=== PATIENT | female | born 1930 | race African-American/Black ===

== ENCOUNTER 2018-04-18 15:02 | Inpatient (IN) ==
[2018-04-18] MEDS ORDERED: SODIUM CHLORIDE 0.9% 500 ML IV STA (15:38)
[2018-04-18 16:32] LABS: Basophils % 0.4 % (0.0-0.8); Eosinophils # 0.3 10*3/uL (0.0-0.87); Eosinophils % 2.5 % (0.00-10.9); Hematocrit 35.7 VOL% (35.7-47.0); Hemoglobin 11.3 GM/DL (12.0-16.0); Immature Granulocytes % 0.5 %; Immature Granulocytes Absolute 0.05 #; Lymphocytes # 2.3 10*3/uL (1.4-4.0); Lymphocytes % 22.7 % (21.3-54.2); Mean Corpuscular HGB Conc 31.7 GM/DL (32-36); Mean Corpuscular Hemoglobin 25 PG (27-34); Mean Platelet Volume 11.5 FL (9.6-12.0); Monocytes # 1.7 10*3/uL (0.11-0.8); Monocytes % 16.4 % (1.7-12.7); Neutrophils # 5.9 10*3/uL (1.4-7.4); Neutrophils % 57.5 % (38.7-73.9); Platelet Count 204 T/CUMM (130-400); Red Blood Count 4.46 MC/CUMM (3.8-5.5); White Blood Count 10.3 T/CUMM (4-12)
[2018-04-18 16:39] LABS: INR 1.1; PT Patient Result 11.2 SECS
[2018-04-18 16:44] LABS: Ammonia 27 UMOL/L (11-32)
[2018-04-18 16:49] LABS: Lactic Acid 1.3 MMOL/L (0.4-2.0)
[2018-04-18 16:55] LABS: Eosinophils 4 % (0-10); Lymphocytes 22 % (20-55); Platelet Estimate Normal; Segmented Neutrophils 59 % (50-85); Total Cells Counted 100
[2018-04-18 17:00] LABS: Alanine Aminotransferase 24 U/L (13-56); Albumin 2.7 G/DL (3.4-5.0); Alkaline Phosphatase 66 U/L (45-117); Aspartate Amino Transferase 35 U/L (0-37); Blood Urea Nitrogen 23 MG/DL (7-18); Glucose 110 MG/DL (74-106); Osmolality,Calculated 281.5 MOS/KG (273-304); Potassium 3.5 MMOL/L (3.5-5.1); Sodium 139 MMOL/L (136-145); Total Protein 8.3 G/DL (6.4-8.3)
[2018-04-18 17:09] LABS: Apearance,Urine CLOUDY (Clear); Bacteria,Urine Few /HPF (Few); Bilirubin,Urine Negative (Negative); Blood, Urine Small mg/dL (Negative); Glucose,Urine (UA) Negative (Negative); Ketones,Urine Negative (Negative); Mucus,Urine Occasional /LPF (Occasional); Nitrite,Urine Negative (Negative); Protein,Urine 100 MG/DL; RBC,Urine 16 /HPF (0-4); Urine Color Yellow (Yellow); Urine Specific Gravity 1.016 (1.001-1.035); Urine Urobilinogen < 2.0 EU/DL (0.2-1.0); WBC,Urine 282 /HPF (0-6)
[2018-04-18] MEDS ORDERED: cefTRIAXone 1,000 MG in SODIUM CHLORIDE 0.9% 100 ML IV STA (17:18)
[2018-04-18 17:43] LABS: Barbiturates Screen,Urine Negative (Negative); Benzodiazepines Screen,Urine Negative (Negative); Cannabinoid Screen,Urine Negative (Negative); Opiate Screen,Urine Negative (Negative); Phencyclidine Screen,Urine Negative (Negative)
[2018-04-18] MEDS ORDERED: MAGNESIUM HYDROXIDE SUSP 30 ML UDCUP PO STA (18:26)
[2018-04-18] MEDS ORDERED: BISACODYL 5 MG TABLET PO ONE (18:26)
[2018-04-18] MEDS ORDERED: SODIUM CHLORIDE 0.9% 1,000 ML IV SCH (18:30)
[2018-04-18] MEDS: traMADol 50 MG TABLET PO SCH ×2 (21:12→23:42)
[2018-04-18] MEDS: DOCUSATE SODIUM 100 MG CAPSULE PO SCH (21:23)
[2018-04-18] MEDS: CARVEDILOL 3.125 MG TABLET PO SCH (21:23)
[2018-04-18] MEDS: SERTRALINE 25 MG TABLET PO SCH (21:23)
[2018-04-19] MEDS ORDERED: amLODIPine 5 MG TABLET PO ONE (02:30)
[2018-04-19] MEDS: traMADol 50 MG TABLET PO SCH ×3 (05:23→18:38)
[2018-04-19 05:51] LABS: Basophils % 0.4 % (0.0-0.8); Eosinophils # 0.1 10*3/uL (0.0-0.87); Eosinophils % 0.9 % (0.00-10.9); Hematocrit 35.5 VOL% (35.7-47.0); Hemoglobin 11.2 GM/DL (12.0-16.0); Immature Granulocytes % 0.4 %; Immature Granulocytes Absolute 0.04 #; Lymphocytes # 1.1 10*3/uL (1.4-4.0); Lymphocytes % 10.1 % (21.3-54.2); Mean Corpuscular HGB Conc 31.5 GM/DL (32-36); Mean Corpuscular Hemoglobin 25 PG (27-34); Mean Corpuscular Volume 79.4 FL (87-102); Mean Platelet Volume 11.7 FL (9.6-12.0); Monocytes # 1.3 10*3/uL (0.11-0.8); Monocytes % 11.7 % (1.7-12.7); Neutrophils # 8.4 10*3/uL (1.4-7.4); Neutrophils % 76.5 % (38.7-73.9); Platelet Count 203 T/CUMM (130-400); Red Blood Count 4.47 MC/CUMM (3.8-5.5); Red Cell Distribution Width 14.8 % (9.3-17.3)
[2018-04-19 06:22] LABS: Albumin 2.5 G/DL (3.4-5.0); Bilirubin,Total 1.6 MG/DL (0.2-1.0); Calcium 8.7 MG/DL (8.5-10.1); Osmolality,Calculated 278.5 MOS/KG (273-304); Potassium 2.9 MMOL/L (3.5-5.1); Risk Ratio 2.52; VLDL CHOLESTEROL 15.2 MG/DL
[2018-04-19] MEDS ORDERED: POTASSIUM CHLORIDE 20 MEQ TABLET PO PRN (07:21)
[2018-04-19] MEDS ORDERED: amLODIPine 5 MG TABLET PO SCH (09:00)
[2018-04-19] MEDS: CARVEDILOL 3.125 MG TABLET PO SCH ×2 (09:18→16:15)
[2018-04-19] MEDS: DOCUSATE SODIUM 100 MG CAPSULE PO SCH ×2 (09:19→20:57)
[2018-04-19] MEDS: ISOSORBIDE MONONITRATE 30 MG TABLET PO SCH (09:23)
[2018-04-19] MEDS: ASPIRIN EC 81 MG TABLET PO SCH (09:23)
[2018-04-19] MEDS: PANTOPRAZOLE 40 MG TABLET PO SCH (09:25)
[2018-04-19] MEDS: ROSUVASTATIN 10 MG TABLET PO SCH (09:25)
[2018-04-19] MEDS: FLUTICASONE 50 MCG NASAL SPRAY 16 GM BOTTLE BOTH NARES SCH (09:26)
[2018-04-19] MEDS: POTASSIUM CHLORIDE RIDER 10 MEQ in PREMIX 1 EACH IV PRN ×5 (09:30→13:35)
[2018-04-19] MEDS: cefTRIAXone 1,000 MG in SYRINGE 1 EACH IV SCH (16:15)
[2018-04-19] MEDS: SERTRALINE 25 MG TABLET PO SCH (20:57)
[2018-04-20] MEDS: traMADol 50 MG TABLET PO SCH ×4 (02:33→17:35)
[2018-04-20 05:47] LABS: Basophils % 0.3 % (0.0-0.8); Eosinophils # 0.3 10*3/uL (0.0-0.87); Eosinophils % 3.2 % (0.00-10.9); Hematocrit 32.3 VOL% (35.7-47.0); Hemoglobin 10.2 GM/DL (12.0-16.0); Immature Granulocytes % 0.6 %; Immature Granulocytes Absolute 0.05 #; Lymphocytes # 1.9 10*3/uL (1.4-4.0); Lymphocytes % 21.4 % (21.3-54.2); Mean Corpuscular HGB Conc 31.6 GM/DL (32-36); Mean Corpuscular Hemoglobin 25 PG (27-34); Mean Corpuscular Volume 79.2 FL (87-102); Mean Platelet Volume 11.4 FL (9.6-12.0); Monocytes # 1.1 10*3/uL (0.11-0.8); Monocytes % 12.4 % (1.7-12.7); Neutrophils # 5.4 10*3/uL (1.4-7.4); Neutrophils % 62.1 % (38.7-73.9); Platelet Count 219 T/CUMM (130-400); Red Blood Count 4.08 MC/CUMM (3.8-5.5); Red Cell Distribution Width 14.9 % (9.3-17.3); White Blood Count 8.7 T/CUMM (4-12)
[2018-04-20] MEDS: ROSUVASTATIN 10 MG TABLET PO SCH (08:12)
[2018-04-20] MEDS: ACETAMINOPHEN 325 MG TABLET PO PRN (08:14)
[2018-04-20] MEDS: ASPIRIN EC 81 MG TABLET PO SCH (08:14)
[2018-04-20] MEDS: PANTOPRAZOLE 40 MG TABLET PO SCH (08:14)
[2018-04-20] MEDS: DOCUSATE SODIUM 100 MG CAPSULE PO SCH ×2 (08:14→21:30)
[2018-04-20] MEDS: amLODIPine 10 MG TABLET PO SCH (08:14)
[2018-04-20] MEDS: CARVEDILOL 3.125 MG TABLET PO SCH ×2 (08:14→17:35)
[2018-04-20] MEDS: ISOSORBIDE MONONITRATE 30 MG TABLET PO SCH (08:14)
[2018-04-20] MEDS: FLUTICASONE 50 MCG NASAL SPRAY 16 GM BOTTLE BOTH NARES SCH (08:21)
[2018-04-20] MEDS: cefTRIAXone 1,000 MG in SYRINGE 1 EACH IV SCH (17:35)
[2018-04-20] MEDS: SERTRALINE 25 MG TABLET PO SCH (21:30)
[2018-04-21] MEDS: traMADol 50 MG TABLET PO SCH ×4 (01:56→18:03)
[2018-04-21 06:25] LABS: Basophils # 0.1 10*3/uL (0.0-0.2); Basophils % 0.5 % (0.0-0.8); Eosinophils # 0.3 10*3/uL (0.0-0.87); Eosinophils % 2.9 % (0.00-10.9); Hemoglobin 10.9 GM/DL (12.0-16.0); Immature Granulocytes % 0.4 %; Immature Granulocytes Absolute 0.04 #; Lymphocytes # 2.2 10*3/uL (1.4-4.0); Lymphocytes % 22.6 % (21.3-54.2); Mean Corpuscular HGB Conc 32.1 GM/DL (32-36); Mean Corpuscular Hemoglobin 25 PG (27-34); Mean Corpuscular Volume 78.3 FL (87-102); Mean Platelet Volume 10.7 FL (9.6-12.0); Monocytes % 10.6 % (1.7-12.7); Neutrophils # 6.1 10*3/uL (1.4-7.4); Platelet Count 248 T/CUMM (130-400); Red Blood Count 4.34 MC/CUMM (3.8-5.5); Red Cell Distribution Width 14.9 % (9.3-17.3); White Blood Count 9.7 T/CUMM (4-12)
[2018-04-21 06:52] LABS: Calcium 8.9 MG/DL (8.5-10.1); Osmolality,Calculated 274.8 MOS/KG (273-304); Potassium 3.9 MMOL/L (3.5-5.1)
[2018-04-21] MEDS: PANTOPRAZOLE 40 MG TABLET PO SCH (08:25)
[2018-04-21] MEDS: CARVEDILOL 3.125 MG TABLET PO SCH ×2 (08:25→18:02)
[2018-04-21] MEDS: ROSUVASTATIN 10 MG TABLET PO SCH (08:25)
[2018-04-21] MEDS: amLODIPine 10 MG TABLET PO SCH (08:25)
[2018-04-21] MEDS: ASPIRIN EC 81 MG TABLET PO SCH (08:26)
[2018-04-21] MEDS: FLUTICASONE 50 MCG NASAL SPRAY 16 GM BOTTLE BOTH NARES SCH (08:26)
[2018-04-21] MEDS: DOCUSATE SODIUM 100 MG CAPSULE PO SCH ×2 (08:26→21:21)
[2018-04-21] MEDS: ISOSORBIDE MONONITRATE 30 MG TABLET PO SCH (08:26)
[2018-04-21] MEDS ORDERED: TUBERCULIN SKIN TEST 0.1 ML SYRINGE INTRADERM ONE (09:30)
[2018-04-21] MEDS: cefTRIAXone 1,000 MG in SYRINGE 1 EACH IV SCH (18:02)
[2018-04-21] MEDS: SERTRALINE 25 MG TABLET PO SCH (21:21)
[2018-04-22] MEDS: traMADol 50 MG TABLET PO SCH ×5 (00:41→23:33)
[2018-04-22 05:20] LABS: Basophils # 0.1 10*3/uL (0.0-0.2); Basophils % 0.6 % (0.0-0.8); Eosinophils # 0.2 10*3/uL (0.0-0.87); Eosinophils % 2.9 % (0.00-10.9); Hematocrit 32.7 VOL% (35.7-47.0); Hemoglobin 10.4 GM/DL (12.0-16.0); Immature Granulocytes % 0.6 %; Immature Granulocytes Absolute 0.05 #; Lymphocytes # 1.9 10*3/uL (1.4-4.0); Lymphocytes % 23.6 % (21.3-54.2); Mean Corpuscular HGB Conc 31.8 GM/DL (32-36); Mean Corpuscular Hemoglobin 25 PG (27-34); Mean Corpuscular Volume 77.9 FL (87-102); Mean Platelet Volume 11.1 FL (9.6-12.0); Monocytes # 0.9 10*3/uL (0.11-0.8); Monocytes % 11.8 % (1.7-12.7); Neutrophils # 4.7 10*3/uL (1.4-7.4); Neutrophils % 60.5 % (38.7-73.9); Platelet Count 262 T/CUMM (130-400); Red Cell Distribution Width 14.6 % (9.3-17.3); White Blood Count 7.9 T/CUMM (4-12)
[2018-04-22] MEDS: PANTOPRAZOLE 40 MG TABLET PO SCH (09:29)
[2018-04-22] MEDS: DOCUSATE SODIUM 100 MG CAPSULE PO SCH ×2 (09:29→20:53)
[2018-04-22] MEDS: amLODIPine 10 MG TABLET PO SCH (09:29)
[2018-04-22] MEDS: ASPIRIN EC 81 MG TABLET PO SCH (09:29)
[2018-04-22] MEDS: ISOSORBIDE MONONITRATE 30 MG TABLET PO SCH (09:29)
[2018-04-22] MEDS: CARVEDILOL 3.125 MG TABLET PO SCH ×2 (09:29→17:50)
[2018-04-22] MEDS: FLUTICASONE 50 MCG NASAL SPRAY 16 GM BOTTLE BOTH NARES SCH (09:29)
[2018-04-22] MEDS: ROSUVASTATIN 10 MG TABLET PO SCH (09:29)
[2018-04-22] MEDS: cefTRIAXone 1,000 MG in SYRINGE 1 EACH IV SCH (17:58)
[2018-04-22] MEDS: SERTRALINE 25 MG TABLET PO SCH (20:52)
[2018-04-22] MEDS: MEGESTROL 400 MG/10 ML UDCUP PO SCH (20:53)
[2018-04-22] MEDS ORDERED: MEGESTROL 40 MG TABLET PO SCH (21:00)
[2018-04-23] MEDS: traMADol 50 MG TABLET PO SCH ×2 (05:55→14:39)
[2018-04-23 05:59] LABS: Basophils % 0.6 % (0.0-0.8); Eosinophils # 0.2 10*3/uL (0.0-0.87); Eosinophils % 3.3 % (0.00-10.9); Hematocrit 34.5 VOL% (35.7-47.0); Hemoglobin 10.7 GM/DL (12.0-16.0); Immature Granulocytes % 0.6 %; Immature Granulocytes Absolute 0.04 #; Lymphocytes # 2.4 10*3/uL (1.4-4.0); Lymphocytes % 33.4 % (21.3-54.2); Mean Corpuscular Hemoglobin 25 PG (27-34); Mean Corpuscular Volume 80.2 FL (87-102); Monocytes # 1.1 10*3/uL (0.11-0.8); Monocytes % 15.8 % (1.7-12.7); Neutrophils # 3.4 10*3/uL (1.4-7.4); Neutrophils % 46.3 % (38.7-73.9); Platelet Count 274 T/CUMM (130-400); Red Cell Distribution Width 14.6 % (9.3-17.3); White Blood Count 7.2 T/CUMM (4-12)
[2018-04-23 06:27] LABS: Eosinophils 1 % (0-10); Lymphocytes 31 % (20-55); Microcytosis Slight; Platelet Estimate Normal; Segmented Neutrophils 58 % (50-85); Total Cells Counted 100
[2018-04-23] MEDS: amLODIPine 10 MG TABLET PO SCH (09:22)
[2018-04-23] MEDS: MEGESTROL 400 MG/10 ML UDCUP PO SCH ×2 (09:22→21:51)
[2018-04-23] MEDS: ISOSORBIDE MONONITRATE 30 MG TABLET PO SCH (09:22)
[2018-04-23] MEDS: ASPIRIN EC 81 MG TABLET PO SCH (09:23)
[2018-04-23] MEDS: ROSUVASTATIN 10 MG TABLET PO SCH (09:23)
[2018-04-23] MEDS: PANTOPRAZOLE 40 MG TABLET PO SCH (09:23)
[2018-04-23] MEDS: FLUTICASONE 50 MCG NASAL SPRAY 16 GM BOTTLE BOTH NARES SCH (09:24)
[2018-04-23] MEDS: DOCUSATE SODIUM 100 MG CAPSULE PO SCH ×2 (09:24→21:51)
[2018-04-23] MEDS: CARVEDILOL 3.125 MG TABLET PO SCH ×2 (09:24→16:35)
[2018-04-23] MEDS: SERTRALINE 25 MG TABLET PO SCH (21:51)
[2018-04-24 05:49] LABS: Basophils % 0.5 % (0.0-0.8); Eosinophils # 0.2 10*3/uL (0.0-0.87); Eosinophils % 2.2 % (0.00-10.9); Hematocrit 33.8 VOL% (35.7-47.0); Hemoglobin 10.9 GM/DL (12.0-16.0); Immature Granulocytes % 0.4 %; Immature Granulocytes Absolute 0.03 #; Lymphocytes # 1.7 10*3/uL (1.4-4.0); Lymphocytes % 23.1 % (21.3-54.2); Mean Corpuscular HGB Conc 32.2 GM/DL (32-36); Mean Corpuscular Hemoglobin 25 PG (27-34); Mean Corpuscular Volume 77.9 FL (87-102); Mean Platelet Volume 10.5 FL (9.6-12.0); Monocytes % 13.8 % (1.7-12.7); Neutrophils # 4.5 10*3/uL (1.4-7.4); Platelet Count 291 T/CUMM (130-400); Red Blood Count 4.34 MC/CUMM (3.8-5.5); Red Cell Distribution Width 14.6 % (9.3-17.3); White Blood Count 7.4 T/CUMM (4-12)
[2018-04-24 06:05] LABS: Calcium 8.8 MG/DL (8.5-10.1); Osmolality,Calculated 272.8 MOS/KG (273-304); Potassium 3.3 MMOL/L (3.5-5.1)
[2018-04-24] MEDS: MEGESTROL 400 MG/10 ML UDCUP PO SCH ×2 (08:15→20:49)
[2018-04-24] MEDS: ACETAMINOPHEN 325 MG TABLET PO PRN (08:15)
[2018-04-24] MEDS: amLODIPine 10 MG TABLET PO SCH (08:15)
[2018-04-24] MEDS: PANTOPRAZOLE 40 MG TABLET PO SCH (08:15)
[2018-04-24] MEDS: CARVEDILOL 3.125 MG TABLET PO SCH ×2 (08:16→18:29)
[2018-04-24] MEDS: FLUTICASONE 50 MCG NASAL SPRAY 16 GM BOTTLE BOTH NARES SCH (08:16)
[2018-04-24] MEDS: DOCUSATE SODIUM 100 MG CAPSULE PO SCH ×2 (08:16→20:49)
[2018-04-24] MEDS: ISOSORBIDE MONONITRATE 30 MG TABLET PO SCH (08:16)
[2018-04-24] MEDS: ASPIRIN EC 81 MG TABLET PO SCH (08:16)
[2018-04-24] MEDS: ROSUVASTATIN 10 MG TABLET PO SCH (08:19)
[2018-04-24] MEDS ORDERED: POTASSIUM CHLORIDE 20 MEQ/15 ML UDCUP PO ONE (16:51)
[2018-04-24] MEDS: SERTRALINE 25 MG TABLET PO SCH (20:49)
[2018-04-25 06:39] LABS: Basophils % 0.6 % (0.0-0.8); Eosinophils # 0.2 10*3/uL (0.0-0.87); Eosinophils % 2.3 % (0.00-10.9); Hematocrit 32.7 VOL% (35.7-47.0); Hemoglobin 10.7 GM/DL (12.0-16.0); Immature Granulocytes % 0.4 %; Immature Granulocytes Absolute 0.03 #; Lymphocytes # 2.7 10*3/uL (1.4-4.0); Lymphocytes % 37.1 % (21.3-54.2); Mean Corpuscular HGB Conc 32.7 GM/DL (32-36); Mean Corpuscular Hemoglobin 25 PG (27-34); Mean Corpuscular Volume 76.2 FL (87-102); Mean Platelet Volume 10.6 FL (9.6-12.0); Monocytes # 1.3 10*3/uL (0.11-0.8); Monocytes % 17.2 % (1.7-12.7); Neutrophils # 3.1 10*3/uL (1.4-7.4); Neutrophils % 42.4 % (38.7-73.9); Platelet Count 314 T/CUMM (130-400); Red Blood Count 4.29 MC/CUMM (3.8-5.5); Red Cell Distribution Width 14.7 % (9.3-17.3); White Blood Count 7.3 T/CUMM (4-12)
[2018-04-25 07:08] LABS: Calcium 8.6 MG/DL (8.5-10.1); Osmolality,Calculated 274.7 MOS/KG (273-304); Potassium 3.8 MMOL/L (3.5-5.1)
[2018-04-25 07:15] LABS: Eosinophils 2 % (0-10); Hypochromasia 1+; Lymphocytes 34 % (20-55); Microcytosis Slight; Ovalocytes Slight; Platelet Estimate Adequate; Segmented Neutrophils 51 % (50-85); Total Cells Counted 100
[2018-04-25] MEDS: PANTOPRAZOLE 40 MG TABLET PO SCH (08:46)
[2018-04-25] MEDS: CARVEDILOL 3.125 MG TABLET PO SCH ×2 (08:46→16:36)
[2018-04-25] MEDS: ISOSORBIDE MONONITRATE 30 MG TABLET PO SCH (08:46)
[2018-04-25] MEDS: ASPIRIN EC 81 MG TABLET PO SCH (08:46)
[2018-04-25] MEDS: DOCUSATE SODIUM 100 MG CAPSULE PO SCH ×2 (08:46→21:04)
[2018-04-25] MEDS: ROSUVASTATIN 10 MG TABLET PO SCH (08:46)
[2018-04-25] MEDS: MEGESTROL 400 MG/10 ML UDCUP PO SCH ×2 (08:46→21:04)
[2018-04-25] MEDS: amLODIPine 10 MG TABLET PO SCH (08:46)
[2018-04-25] MEDS: POLYETHYLENE GLYCOL POWDER 17 GM PACK PO SCH (08:47)
[2018-04-25] MEDS: FLUTICASONE 50 MCG NASAL SPRAY 16 GM BOTTLE BOTH NARES SCH (08:47)
[2018-04-25] MEDS: ACETAMINOPHEN 325 MG TABLET PO PRN (11:36)
[2018-04-25] MEDS: SERTRALINE 25 MG TABLET PO SCH (21:04)
[2018-04-26 05:42] LABS: Basophils # 0.1 10*3/uL (0.0-0.2); Basophils % 0.7 % (0.0-0.8); Eosinophils # 0.2 10*3/uL (0.0-0.87); Eosinophils % 3.6 % (0.00-10.9); Hematocrit 34.4 VOL% (35.7-47.0); Hemoglobin 10.6 GM/DL (12.0-16.0); Immature Granulocytes % 0.7 %; Immature Granulocytes Absolute 0.05 #; Lymphocytes # 2.2 10*3/uL (1.4-4.0); Lymphocytes % 33.2 % (21.3-54.2); Mean Corpuscular HGB Conc 30.8 GM/DL (32-36); Mean Corpuscular Hemoglobin 24 PG (27-34); Mean Corpuscular Volume 78.7 FL (87-102); Mean Platelet Volume 10.5 FL (9.6-12.0); Monocytes # 0.8 10*3/uL (0.11-0.8); Monocytes % 12.3 % (1.7-12.7); Neutrophils # 3.3 10*3/uL (1.4-7.4); Neutrophils % 49.5 % (38.7-73.9); Platelet Count 307 T/CUMM (130-400); Red Blood Count 4.37 MC/CUMM (3.8-5.5); Red Cell Distribution Width 14.7 % (9.3-17.3); White Blood Count 6.7 T/CUMM (4-12)
[2018-04-26 05:49] LABS: Osmolality,Calculated 273.8 MOS/KG (273-304); Potassium 3.7 MMOL/L (3.5-5.1)
[2018-04-26] MEDS: ASPIRIN EC 81 MG TABLET PO SCH (10:16)
[2018-04-26] MEDS: DOCUSATE SODIUM 100 MG CAPSULE PO SCH ×2 (10:16→20:46)
[2018-04-26] MEDS: ROSUVASTATIN 10 MG TABLET PO SCH (10:16)
[2018-04-26] MEDS: CARVEDILOL 3.125 MG TABLET PO SCH ×2 (10:16→16:35)
[2018-04-26] MEDS: MEGESTROL 400 MG/10 ML UDCUP PO SCH ×2 (10:17→20:46)
[2018-04-26] MEDS: PANTOPRAZOLE 40 MG TABLET PO SCH (10:17)
[2018-04-26] MEDS: amLODIPine 10 MG TABLET PO SCH (10:17)
[2018-04-26] MEDS: ISOSORBIDE MONONITRATE 30 MG TABLET PO SCH (10:17)
[2018-04-26] MEDS: POLYETHYLENE GLYCOL POWDER 17 GM PACK PO SCH (10:17)
[2018-04-26] MEDS: FLUTICASONE 50 MCG NASAL SPRAY 16 GM BOTTLE BOTH NARES SCH (10:17)
[2018-04-26] MEDS: SERTRALINE 25 MG TABLET PO SCH (20:46)
[2018-04-27] MEDS: CARVEDILOL 3.125 MG TABLET PO SCH (09:04)
[2018-04-27] MEDS: amLODIPine 10 MG TABLET PO SCH (09:04)
[2018-04-27] MEDS: ASPIRIN EC 81 MG TABLET PO SCH (09:04)
[2018-04-27] MEDS: ISOSORBIDE MONONITRATE 30 MG TABLET PO SCH (09:04)
[2018-04-27] MEDS: PANTOPRAZOLE 40 MG TABLET PO SCH (09:04)
[2018-04-27] MEDS: DOCUSATE SODIUM 100 MG CAPSULE PO SCH (09:04)
[2018-04-27] MEDS: ROSUVASTATIN 10 MG TABLET PO SCH (09:04)
[2018-04-27] MEDS: MEGESTROL 400 MG/10 ML UDCUP PO SCH (09:04)
[2018-04-27] MEDS: POLYETHYLENE GLYCOL POWDER 17 GM PACK PO SCH (09:05)
[2018-04-27] MEDS: FLUTICASONE 50 MCG NASAL SPRAY 16 GM BOTTLE BOTH NARES SCH (09:05)
[2018-04-27 11:00] VITALS: BP 133/60
== END 2018-04-27 16:34 | DRG 536 ==
LOC: N.ED 15:02 → SUATTDRO 17:41 → N.EDINP 17:41 → N.3E 18:23
PROVIDERS: ADMIT Internal Medicine; ATTEND Internal Medicine